=== PATIENT | female | born 1990 | race Hispanic/Latino ===

== ENCOUNTER 2023-12-31 09:54 | Emergency (ER) | payer OTHER ==
[~2023-12-31] VITALS: Ht 152.4 cm; Wt 75.9 kg
[2023-12-31 10:00] VITALS: PULSE 92; RESP 18; TEMP 98
[2023-12-31] MEDS: BACITRACIN ZINC 0.9GM TP ONE (11:17)
[2023-12-31] MEDS ORDERED: CLEOCIN HCL300 MG PO (11:25)
[2023-12-31 11:37] VITALS: BP 135/86; PULSE 75; RESP 16; TEMP 98.5; O2SAT 100
== END 2023-12-31 11:40 | disposition home or self-care (01) ==
LOC: FSED 09:59
DX: N64.4 Mastodynia (principal); L02.213 Cutaneous abscess of chest wall
CPT/HCPCS: 87071; 87186; 87205; 99283